=== PATIENT | female | born 1990 | race Caucasian/White ===

== ENCOUNTER 2018-10-25 04:05 | Emergency (ER) | payer OTHER ==
[2018-10-25] MEDS ORDERED: Lidocaine 1% 20 ML MDV INFILT ONE (04:06)
--- NOTE | 2018-10-25 04:36 | EDM.PDOC ---
ED HPI GENERAL MEDICAL PROBLEM - General Chief Complaint: Laceration Stated Complaint: CUT HAND Time Seen by Provider: 10/25/18 04:35 Source of Information: Reports: Patient History Limitations: Reports: Intoxication - History of Present Illness INITIAL COMMENTS - FREE TEXT/NARRATIVE: patient is a pleasant 28-year-old female who was out earlier this evening drinking, having about 3 gin and possibly up to 4-5 beers. She was climbing down the side of a building and caught her hand on the edge of a metal box and causing a deep laceration. She continued to climb down the building lowering herself to the ground, did not fall, did not hit her head and denies any loss of consciousness. She is able to relate the whole incident to me and does not appear to have any memory deficits. She complains of some pain in her hand, and a slight numb/tingly feeling on the palmar side of her thumb. She has no other injuries or concerns. Last tetanus in 2009 Right hand Pain Score (Numeric/FACES): 5 - Related Data Allergies Allergy/AdvReac Type Severity Reaction Status Date / Time Sulfa (Sulfonamide Allergy Other Verified 10/25/18 04:48 Antibiotics) Home Meds: Home Meds NK [No Known Home Meds] 10/25/18 [History] Past Medical History - Past Health History Medical/Surgical History: Denies Medical/Surgical History Social & Family History - Family History Family Medical History: Noncontributory - Tobacco Use Smoking Status *Q: Current Every Day Smoker - Alcohol Use Alcohol Use History: Yes ED ROS GENERAL - Review of Systems Review Of Systems: ROS reveals no pertinent complaints other than HPI. ED EXAM, SKIN/RASH Exam: See Below Text/Narrative:: Gen.: Alert, pleasant in no acute distress. Slightly inebriated. Heart is regular, lungs are clear. She has no other obvious injuries aside from a cut on her hand, and no evidence of head trauma. Right hand has a 5 cm laceration across the thenar eminence through the skin and subcutaneous tissue but not penetrating the fascia. no deeper structures are visible She has full strength and range of motion of all of her fingers against resistance and also of her thumb in all directions against resistance. she reports slight tingling feeling on the palmar side of her thumb, but sensation is intact to light touch throughout her thumb. She has good distal capillary refill to all her fingers and thumb. Course - Vital Signs Text/Narrative:: base of wound visualized, 5cm cut through skin and subcutaneous tissue, facia intact underneath, appears clean and non-contaminated. Motor intact to hand and thumb. patient had fair amount of alcohol and cut hand on metal box, I think it's appropriate to do an x-ray for foreign body. Instructions given to nursing to soak in chlorhexidine. Last Recorded V/S: Last Vital Signs Temp 36.7 C 10/25/18 04:05 Pulse 104 H 10/25/18 04:05 Resp 16 10/25/18 04:05 BP 119/74 10/25/18 04:05 Pulse Ox 100 10/25/18 04:05 - Orders/Labs/Meds Orders: Active Orders 24 hr Category Date Time Status Hand Comp Min 3V Rt [CR] Stat Exams 10/25/18 04:26 Taken - Re-Assessments/Exams Free Text/Narrative Re-Assessment/Exam: 10/25/18 06:03 no foreign body seen on hand x-ray 5 cm laceration repaired with good closure. 48 hours antibiotics given for prophylaxis given high risk location and depth of wound. procedure note: After soaking in chlorhexidine, the area was cleansed with sterile saline and then 2 mL of 1% lidocaine without epi were used to numb the edges of the wound. 8 interrupted sutures of 5oh Ethicon were placed to close the wound and then it was bandaged with bacitracin and nonstick gauze and wrapped. Patient tolerated the procedure well with no immediate complications and very minimal bleeding. Motor function to the hand was retested following closure and remained intact and unchanged Departure - Departure Time of Disposition: 05:56 Disposition: Home, Self-Care 01 Condition: Good Clinical Impression: Laceration - Discharge Information *PRESCRIPTION DRUG MONITORING PROGRAM REVIEWED*: Not Applicable *COPY OF PRESCRIPTION DRUG MONITORING REPORT IN PATIENT CHARI: Not Applicable Instructions: Stitches, [place], or Adhesive Wound Closure, [id number]-[id number] Forms: ED Department Discharge Additional Instructions: stitches out in 10 days tetanus updated today if signs of infection, especially inability or pain with hand movement, wrist movement, or red streaking up your arm, needs to be seen immediately some weeping of clear or yellow fluid is normal keep current bandage on until Saturday night, then change and re-apply with bacitracin gel 48 hours antibiotics given for prophylaxis of infection - My Orders Last 24 Hours: My Active Orders 10/25/18 04:26 Hand Comp Min 3V Rt [CR] Stat - Assessment/Plan Last 24 Hours: My Active Orders 10/25/18 04:26 Hand Comp Min 3V Rt [CR] Stat
[2018-10-25] MEDS ORDERED: Diphtheria,Pertussis(Acell),Tetanus Vaccine 0.5 ML SDV IM ONE (06:00)
--- NOTE | 2018-10-27 11:05 | CR ---
INDICATION: Laceration, question foreign body, cut hand apparently on the volar side near the first metacarpal. RIGHT HAND: Three views of the right hand revealed no evidence of a fracture, dislocation, or other acute bone or joint abnormality. There appear to be some very minimal degenerative changes at the second metacarpophalangeal joint, most likely posttraumatic osteoarthritis. No definite radiopaque foreign body could be identified. IMPRESSION: 1. No acute bone or joint abnormality. 2. No radiopaque foreign body. 3. 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 [facility]
== END 2018-10-25 06:05 | disposition home or self-care (01) ==
LOC: FB.ED 04:05
DX: S61.411A Laceration without foreign body of right hand, initial encounter (principal); F17.200 Nicotine dependence, unspecified, uncomplicated; Z23 Encounter for immunization; Z88.2 Allergy status to sulfonamides; W26.8XXA Contact with other sharp object(s), not elsewhere classified, initial encounter
CPT/HCPCS: 12013; 73130; 90471; 90715; 99283; J2001